=== PATIENT | female | born 1950 | race Hispanic/Latino ===

== ENCOUNTER 2017-12-16 06:52 | Observation (INO) | payer MEDICARE, OTHER ==
[2017-12-16] MEDS ORDERED: ACETAMINOPHEN EXTRA STRENGTH 500 MG TABLET ONE (07:19)
[2017-12-16] MEDS ORDERED: SODIUM CHLORIDE 0.9% 1000ML 3,000 ML IV ONE (07:19)
[2017-12-16] MEDS ORDERED: CEFTRIAXONE SODIUM 1 GM ONE (07:19)
[2017-12-16 07:23] LABS: APPEARANCE,URINE SL CLOUDY (CLEAR); BASOPHILS % (AUTO) 0.3 % (0.0-5.0); BILIRUBIN,URINE NEGATIVE (NEGATIVE); COLOR,URINE YELLOW (YELLOW); EOSINOPHILS % (AUTO) 0.1 % (0.0-8.0); GLUCOSE, URINE (UA) NEGATIVE (NEGATIVE); HEMATOCRIT 38.8 % (36-48); KETONES,URINE NEGATIVE (NEGATIVE); LEUKOCYTE ESTERASE ,URINE LARGE (NEGATIVE); LYMPHOCYTES % (AUTO) 2.4 % (21.0-51.0); MEAN CORPUSCULAR HEMOGLOBIN 31.6 pg (27.0-33.0); MEAN CORPUSCULAR HGB CONC 34.9 g/dL (32.0-36.0); MEAN CORPUSCULAR VOLUME 90.7 fL (79-99); MONOCYTES % (AUTO) 3.5 % (3.0-13.0); NEUTROPHILS % (AUTO) 93.7 % (40.0-77.0); NITRATE,URINE POSITIVE (NEGATIVE); OCCULT BLOOD,URINE LARGE (NEGATIVE); PLATELET COUNT (AUTO) 120 K/uL (130-400); PROTEIN,URINE 30 (NEGATIVE); RED BLOOD CELL COUNT(AUTO) 4.28 MIL/uL (4.00-5.50); RED CELL DISTRIBUTION WIDTH 13.3 % (11.0-15.5); UROBILINOGEN,URINE 0.2 mg/dL (0.2-1.0); WHITE BLOOD COUNT (AUTO) 17.4 K/uL (4.8-10.8)
[2017-12-16 07:33] LABS: BACTERIA,URINE Moderate /HPF (None Seen); SQUAMOUS EPITHELIAL CELL,UR Few /HPF (0-2); WBC,URINE TNTC /HPF (0-1)
[2017-12-16 07:35] LABS: INR 1.03 (0.85-1.15); PARTIAL THROMBOPLASTIN TIME 28.7 SEC (26.3-35.5); PROTHROMBIN TIME 10.8 SEC (9.6-11.6)
[2017-12-16 07:40] LABS: CARBON DIOXIDE 25 mmol/L (21-32); CHLORIDE 99 mmol/L (101-111); CREATININE 1.2 mg/dL (0.5-1.5); GLOMERULAR FILTR. RATE CALC 47 mL/min (>60); GLUCOSE,RANDOM 155 mg/dL (70-105); POTASSIUM 3.6 mmol/L (3.5-5.1); SODIUM SERUM 136 mmol/L (136-145); UREA NITROGEN, BLOOD 29 mg/dL (7-18)
[2017-12-16 07:57] LABS: ALANINE AMINOTRANSFERASE 21 U/L (12-78); ALBUMIN 3.5 g/dL (3.5-5.0); ASPARTATE AMINOTRANSFERASE 18 U/L (10-37); BILIRUBIN,TOTAL 1.1 mg/dL (0.2-1.0); CREATINE KINASE MB 0.8 ng/mL (0.5-3.6); CREATINE KINASE, TOTAL 109 U/L (21-232); MYOGLOBIN 91 ng/mL (10-92); TOTAL PROTEIN, SERUM 8.3 g/dL (6.0-8.3); TROPONIN I < 0.04 ng/mL (0.00-0.06)
[2017-12-16] MEDS ORDERED: LEVOFLOXACIN 750 MG/D5W 150 ML 150 ML ONE (09:09)
[2017-12-16] MEDS ORDERED: POTASSIUM CHLORIDE 20MEQ/100ML 100 ML IV PRN (10:15)
[2017-12-16] MEDS ORDERED: POTASSIUM CHLORIDE 10% ELIXIR 20 MEQ/15 ML UDCUP PO PRN (10:15)
[2017-12-16] MEDS ORDERED: LIDOCAINE HCL-MPF 1% 2ML VIAL IVP PRN (10:15)
[2017-12-16 11:19] LABS: HEMOGLOBIN A1C 6.3 % (4.0-6.0)
[2017-12-16] MEDS: INSULIN HUMULIN R 100 UNIT/ML 3ML SQ SCH ×3 (11:30→20:59)
[2017-12-16 14:00] VITALS: BP 172/81
[2017-12-16] MEDS ORDERED: ACETAMINOPHEN 325 MG TAB ONE (15:21)
[2017-12-16] MEDS ORDERED: ONDANSETRON HCL MDV 20ML 2 MG/ML VIAL ONE (15:25)
[2017-12-16 16:00] VITALS: BP 125/69
[2017-12-16] MEDS ORDERED: LISI40TA4 PO (16:56)
[2017-12-16] MEDS ORDERED: METF500T6 PO (16:56)
[2017-12-16] MEDS ORDERED: ATOR10 PO (16:56)
[2017-12-16] MEDS ORDERED: HYDR12.54 PO (16:56)
[2017-12-16] MEDS ORDERED: CLONIDINE HCL 0.1 MG TABLET PO PRN (17:00)
[2017-12-16] MEDS ORDERED: HYDRALAZINE HCL 20 MG/ML VIAL IV PRN (17:00)
[2017-12-16] MEDS ORDERED: ONDANSETRON HCL MDV 20ML 2 MG/ML VIAL IVP PRN (17:00)
[2017-12-16] MEDS ORDERED: LACTULOSE 20 GM/30 ML UDCUP PO PRN (17:00)
[2017-12-16] MEDS: SODIUM CHLORIDE 0.9% 1000ML 1,000 ML IV SCH (17:58)
[2017-12-16] MEDS: LISINOPRIL 40 MG TABLET PO SCH (17:58)
[2017-12-16] MEDS: HYDROCHLOROTHIAZIDE 25 MG TABLET PO SCH (17:58)
[2017-12-16] MEDS: POTASSIUM CHLORIDE 20 MEQ ERTAB PO PRN (17:59)
[2017-12-16 19:44] VITALS: BP 130/62
[2017-12-16] MEDS: ACETAMINOPHEN 325 MG TAB PO PRN (21:47)
[2017-12-16 23:33] VITALS: BP 127/66
[2017-12-17] VITALS (7 sets, daily range): BP systolic 122–163; BP diastolic 61–93
[2017-12-17] MEDS: SODIUM CHLORIDE 0.9% 1000ML 1,000 ML IV SCH ×3 (03:57→23:14)
[2017-12-17] MEDS: ACETAMINOPHEN 325 MG TAB PO PRN ×3 (03:59→19:49)
[2017-12-17 04:57] LABS: HEMATOCRIT 32.7 % (36-48); MEAN CORPUSCULAR HEMOGLOBIN 31.6 pg (27.0-33.0); MEAN CORPUSCULAR HGB CONC 34.6 g/dL (32.0-36.0); MEAN CORPUSCULAR VOLUME 91.3 fL (79-99); PLATELET COUNT (AUTO) 100 K/uL (130-400); RED BLOOD CELL COUNT(AUTO) 3.58 MIL/uL (4.00-5.50); RED CELL DISTRIBUTION WIDTH 13.7 % (11.0-15.5); WHITE BLOOD COUNT (AUTO) 11.8 K/uL (4.8-10.8)
[2017-12-17 05:08] LABS: CREATININE 0.9 mg/dL (0.5-1.5); POTASSIUM 3.4 mmol/L (3.5-5.1)
[2017-12-17] MEDS: INSULIN HUMULIN R 100 UNIT/ML 3ML SQ SCH ×4 (06:24→21:10)
[2017-12-17] MEDS: POTASSIUM CHLORIDE 20 MEQ ERTAB PO PRN ×2 (06:28→08:52)
[2017-12-17] MEDS: HYDROCHLOROTHIAZIDE 25 MG TABLET PO SCH (08:51)
[2017-12-17] MEDS: LISINOPRIL 40 MG TABLET PO SCH (08:52)
[2017-12-17] MEDS ORDERED: LISINOPRIL 40 MG TABLET PO SCH (09:00)
[2017-12-17] MEDS ORDERED: CEFTRIAXONE SODIUM 1 GM IVP SCH (09:00)
[2017-12-17] MEDS ORDERED: HYDROCHLOROTHIAZIDE 25 MG TABLET PO SCH (09:00)
[2017-12-17] MEDS ORDERED: CEFTRIAXONE 2GM+NS 100ML 100 ML IV SCH (10:15)
[2017-12-17] MEDS: CEFTRIAXONE SODIUM 2 GM VIAL IVP SCH (11:35)
[2017-12-18 04:14] VITALS: BP 155/88
[2017-12-18 04:46] LABS: HEMATOCRIT 34.9 % (36-48); MEAN CORPUSCULAR HEMOGLOBIN 32.4 pg (27.0-33.0); MEAN CORPUSCULAR HGB CONC 35.1 g/dL (32.0-36.0); MEAN CORPUSCULAR VOLUME 92.3 fL (79-99); PLATELET COUNT (AUTO) 115 K/uL (130-400); RED BLOOD CELL COUNT(AUTO) 3.78 MIL/uL (4.00-5.50); RED CELL DISTRIBUTION WIDTH 13.9 % (11.0-15.5); WHITE BLOOD COUNT (AUTO) 9.6 K/uL (4.8-10.8)
[2017-12-18 04:59] LABS: CREATININE 0.9 mg/dL (0.5-1.5); POTASSIUM 3.5 mmol/L (3.5-5.1)
[2017-12-18] MEDS: POTASSIUM CHLORIDE 20 MEQ ERTAB PO PRN ×2 (05:23→08:37)
[2017-12-18] MEDS: ACETAMINOPHEN 325 MG TAB PO PRN (05:25)
[2017-12-18] MEDS: INSULIN HUMULIN R 100 UNIT/ML 3ML SQ SCH ×4 (05:46→21:00)
[2017-12-18 08:00] VITALS: BP 135/74
[2017-12-18] MEDS: LISINOPRIL 40 MG TABLET PO SCH (08:37)
[2017-12-18] MEDS: HYDROCHLOROTHIAZIDE 25 MG TABLET PO SCH (08:38)
[2017-12-18] MEDS: CEFTRIAXONE SODIUM 2 GM VIAL IVP SCH (08:38)
[2017-12-18] MEDS: SODIUM CHLORIDE 0.9% 1000ML 1,000 ML IV SCH (08:38)
[2017-12-18 12:00] VITALS: BP 128/71
[2017-12-18 16:33] VITALS: BP 173/97
[2017-12-18 19:08] VITALS: BP 153/90
[2017-12-19 00:03] VITALS: BP_SYST 143; BP_SYST 153; BP_DIAS 76; BP_DIAS 90
[2017-12-19 05:05] VITALS: BP 141/77
[2017-12-19 05:42] LABS: CREATININE 0.8 mg/dL (0.5-1.5); POTASSIUM 3.7 mmol/L (3.5-5.1)
[2017-12-19] MEDS: INSULIN HUMULIN R 100 UNIT/ML 3ML SQ SCH ×2 (06:03→11:30)
[2017-12-19 08:05] VITALS: BP 149/67
[2017-12-19] MEDS: HYDROCHLOROTHIAZIDE 25 MG TABLET PO SCH (08:26)
[2017-12-19] MEDS: LISINOPRIL 40 MG TABLET PO SCH (08:27)
[2017-12-19] MEDS ORDERED: LEVO500T2 PO (09:47)
[2017-12-19] MEDS: CEFTRIAXONE SODIUM 2 GM VIAL IVP SCH (10:46)
[2017-12-19 11:53] VITALS: BP 158/87
== END 2017-12-19 12:12 | disposition home or self-care (01) ==
LOC: EDH 06:52 → EDHIP 09:30 → 4BH 14:27
PROVIDERS: ADMIT Family Medicine; ATTEND Family Medicine
DX: A41.9 Sepsis, unspecified organism (principal); N39.0 Urinary tract infection, site not specified; E11.65 Type 2 diabetes mellitus with hyperglycemia; I10 Essential (primary) hypertension; E66.9 Obesity, unspecified; E78.5 Hyperlipidemia, unspecified; Z82.49 Family history of ischemic heart disease and other diseases of the circulatory system
CPT/HCPCS: 36415 ×4; 71045; 76770; 80048 ×3; 80053; 81001; 82550; 82553; 82948 ×13; 83036; 83605; 83874; 84484; 85025; 85027 ×2; 85610; 85730; 87040 ×2; 87088; 87186 ×2; 87804 ×2; 93005; 96361 ×3; 96372; 96374; 96376 ×3; 99285; A4218 ×5; G0378 ×75; J0696 ×5; J1815; J1956; J7030 ×2

== ENCOUNTER → 2022-05-07 | Outpatient (CLI) | payer OTHER ==
[~2022-05-07] MED LIST: ATOR10 PO; HYDR12.54 PO; LEVO500T2 PO; LISI40TA9 PO; METF-444 PO
== END | disposition home or self-care (01) ==
LOC: OIH 10:38
PROVIDERS: ATTEND Student in an Organized Health Care Education/Training Program
DX: R07.9 Chest pain, unspecified (principal)
CPT/HCPCS: 93306

== ENCOUNTER → 2022-06-17 | Outpatient (CLI) | payer OTHER ==
[~2022-06-17] MED LIST changes: +IOHEXOL 350 MG/ML 100ML INFUS..BTL IV ONE
== END | disposition home or self-care (01) ==
LOC: RAH 10:30
PROVIDERS: ATTEND Student in an Organized Health Care Education/Training Program
DX: K44.9 Diaphragmatic hernia without obstruction or gangrene (principal); M47.815 Spondylosis without myelopathy or radiculopathy, thoracolumbar region
CPT/HCPCS: 75574; Q9967

== ENCOUNTER → 2024-10-02 | Outpatient (CLI) | payer OTHER ==
[~2024-10-02] MED LIST changes: -IOHEXOL 350 MG/ML 100ML INFUS..BTL IV ONE
--- NOTE | 2024-10-06 14:12 | HMCSR ---
APPROVED REPORT Laterality: Bilateral Indications r09.89 Doppler Spectral Velocity Analysis PSV / EDVPSV / EDV ECA (R) 823 / cm/sECA (L) 94 / cm/s dICA (R) 118 / 34 cm/sdICA (L) 85 / 32 cm/s Yazmin (R) 51 / 18 cm/smICA (L) 91 / 38 cm/s pICA (R) 63 / 20 cm/spICA (L) 72 / 21 cm/s dCCA (R) 51 / 17 cm/sdCCA (L) 62 / 19 cm/s mCCA (R) 65 / 16 cm/smCCA (L) 75 / 15 cm/s pCCA (R) 73 / 20 cm/spCCA (L) 80 / 19 cm/s Vert (R) 59 / cm/sVert (L) 50 / cm/s Subl. (R) 145 / cm/sSubl. (L) 92 / cm/s ICA/CCA 1.62ICA/CCA 1.14 Technologist Impression Minimal plaque noted in the bilateral carotids. Bilateral ICAs appear patent without hemodynamic significance. Bilateral vertebral arteries appear antegrade. Conclusion Minimal plaque noted in the bilateral carotids. Bilateral ICAs appear patent without hemodynamic significance. Bilateral vertebral arteries appear antegrade. Conclusion Minimal plaque noted in the bilateral carotids. Bilateral ICAs appear patent without hemodynamic significance. Bilateral vertebral arteries appear antegrade.
== END | disposition home or self-care (01) ==
LOC: SHCH 08:40
PROVIDERS: ATTEND Student in an Organized Health Care Education/Training Program
DX: R09.89 Other specified symptoms and signs involving the circulatory and respiratory systems (principal)
CPT/HCPCS: 93880